=== PATIENT | male | born 1990 | race Two or more races ===

== ENCOUNTER 2017-01-14 23:25 | Emergency (ER) | payer MEDICAID ==
[~2017-01-14] VITALS: Ht 170.2 cm; Wt 78.9 kg
[2017-01-14] MEDS ORDERED: NKM (23:35)
[2017-01-14] MEDS ORDERED: BUSPAR10 MG ORAL (23:44)
[2017-01-14] MEDS ORDERED: LORazepam 1mg tab ORAL ONE (23:45)
--- NOTE | 2017-01-14 23:45 | Emergency Room Report ---
History of Present Illness General Chief Complaint: Chest Pain Source: Patient Present Illness HPI A 26-year-old male with history of alcohol abuse and methamphetamine abuse. He presents with chief complaint of chest pain. His been ongoing for over a month. Worse with stress. Denies any fever or chills. He said he had some baby moma issues. Fell palpitation and shortness of breath. No fever or chills. No nausea no vomiting. No radiation. No diaphoresis. No exertional component. Allergies: Coded Allergies: No Known Allergies (Unverified , 01/14/17) Patient History Past Medical History: none, see triage record, old chart reviewed Past Surgical History: none Pertinent Family History: none Social History: Reports: alcohol use, drug use, smoking Immunizations: other Reviewed Nursing Documentation: PMH: Agreed, PSxH: Agreed Nursing Documentation-PMH Past Medical History: No History, Except For Review of Systems Eye: Denies: blurred vision, eye pain ENT: Denies: ear pain, nose congestion, throat swelling Respiratory: Denies: cough, shortness of breath Cardiovascular: Reports: chest pain, Denies: palpitations Gastrointestinal: Denies: abdominal pain, diarrhea, nausea, vomiting Musculoskeletal: Denies: back pain, joint pain Skin: Denies: rash Neurological: Denies: headache, numbness Endocrine: Denies: increased thirst, increased urine Hematologic/Lymphatic: Denies: easy bruising All Other Systems: negative except mentioned in HPI Physical Exam Vital Signs Date Time Temp Pulse Resp B/P Pulse Ox O2 Delivery O2 Flow Rate FiO2 01/14/17 23:30 98.1 93 22 142/90 100 Room Air vitals normal Sp02 EP Interpretation: reviewed, normal General Appearance: well appearing, no apparent distress, alert Head: normocephalic, atraumatic Eyes: bilateral eye EOMI, bilateral eye PERRL ENT: hearing grossly normal, normal pharynx Neck: full range of motion, supple, no meningismus Respiratory: chest non-tender, lungs clear, normal breath sounds Cardiovascular #1: regular rate, rhythm, no murmur Gastrointestinal: normal bowel sounds, non tender, no mass, no organomegaly, no bruit, non-distended Musculoskeletal: back normal, gait/station normal, normal range of motion Psychiatric: anxious Skin: warm/dry Medical Decision Making Diagnostic Impression: Primary Impression: Acute stress reaction Additional Impressions: Methamphetamine abuse Alcohol abuse ER Course Patient presents with atypical chest pain. Not cardiac in nature. His been ongoing for over a month. This is stress related. No evidence of ACS, PE, dissection. I see no need for EKG. We'll discharge him. Last Vital Signs Date Time Temp Pulse Resp B/P Pulse Ox O2 Delivery O2 Flow Rate FiO2 01/14/17 23:30 98.1 93 22 142/90 100 Room Air Status: improved Disposition: HOME, SELF-CARE Condition: Stable Scripts Buspirone Hcl* (BUSPAR*) 10 Mg Tablet 10 MG ORAL THREE TIMES A DAY, #15 TAB 0 Refills Prov: ARIADNA JUAREZ M.D. 01/14/17 Additional Instructions: Abstain from drugs and alcohol. Followup with your Dr. in 7 days. Return if worse. ARIADNA JUAREZ M.D. Jan 14, 2017 23:44
[2017-01-14 23:51] VITALS: BP 142/90
== END 2017-01-15 00:30 | disposition home or self-care (01) ==
LOC: EMR 23:40
DX: F43.0 Acute stress reaction (principal); F15.10 Other stimulant abuse, uncomplicated; F10.10 Alcohol abuse, uncomplicated; R07.89 Other chest pain; F17.200 Nicotine dependence, unspecified, uncomplicated
CPT/HCPCS: 99283